=== PATIENT | male | born 1985 | race Caucasian/White ===

== ENCOUNTER 2025-01-31 19:44 | Emergency (ER) | payer OTHER ==
[~2025-01-31] VITALS: Ht 180.3 cm; Wt 111.1 kg
[~2025-01-31 19:44] MED LIST: CHLGLU.12S MT; CYCL10 PO; Cleocin HCl300 MG PO; HYDACE5 PO; IBUP600 PO; IBUP800 PO; LIDO2L MM; NAPR500 PO; Naprosyn500 MG PO; Norco 10-325 T1 EACH PO; Norco 5-325 Ta1 EACH PO; PENVK500 PO; PROACE100 PO; RXCYCL10 PO; RXHYDACE PO; RXOXYACE PO; RXPROACE PO; SILSUL1TC TOP; Silvadene20 GM TOP; TRAM50 PO; VICODIN 5-3001 EACH PO; Veetids 500500 MG PO; Zofran Odt4 MG SL
[2025-01-31 20:03] VITALS: BP 143/104
[2025-01-31] MEDS ORDERED: Rivaroxaban 10 MG Tab PO ONE (21:40)
[2025-01-31] MEDS ORDERED: Acetaminophen 500 MG Tab PO ONE (21:50)
[2025-01-31] MEDS ORDERED: XARELTO20 MG PO (21:51)
[2025-01-31] MEDS ORDERED: ACET500 PO (21:52)
== END 2025-01-31 22:06 | disposition home or self-care (01) ==
LOC: ER 19:44
DX: I82.4Z1 Acute embolism and thrombosis of unspecified deep veins of right distal lower extremity (principal); F17.290 Nicotine dependence, other tobacco product, uncomplicated
CPT/HCPCS: 93971; 99283-25; A9270

== ENCOUNTER 2025-08-13 02:09 | Emergency (ER) | payer OTHER ==
[~2025-08-13] VITALS: Ht 182.9 cm; Wt 104.3 kg
[~2025-08-13 02:09] MED LIST changes: +ACET500 PO; +XARELTO20 MG PO
[2025-08-13] MEDS ORDERED: IBU600 MG PO (02:56)
[2025-08-13 03:04] VITALS: BP 121/74
== END 2025-08-13 03:07 | disposition home or self-care (01) ==
LOC: ER 02:09
DX: M79.661 Pain in right lower leg (principal); F17.290 Nicotine dependence, other tobacco product, uncomplicated; Z79.899 Other long term (current) drug therapy
CPT/HCPCS: 73590; 99283-25; A9270

== ENCOUNTER 2025-08-15 23:37 | Emergency (ER) | payer OTHER ==
[~2025-08-15] VITALS: Ht 185.4 cm; Wt 99.8 kg
[~2025-08-15 23:37] MED LIST changes: +IBU600 MG PO
[2025-08-16] MEDS ORDERED: HYDROcodone 10-APAP 325 TAB PO ONE (01:10)
[2025-08-16 02:02] VITALS: BP 114/80
== END 2025-08-16 02:05 | disposition home or self-care (01) ==
LOC: ER 23:37
DX: M25.571 Pain in right ankle and joints of right foot (principal); M79.661 Pain in right lower leg; F17.290 Nicotine dependence, other tobacco product, uncomplicated; Z79.01 Long term (current) use of anticoagulants; W18.30XA Fall on same level, unspecified, initial encounter
CPT/HCPCS: 73590; 73610; 99283-25; A9270; L1906